=== PATIENT | male | born 1990 | race African-American/Black ===

== ENCOUNTER 2023-11-26 18:54 | Emergency (ER) | payer SELFPAY ==
[2023-11-26] MEDS ORDERED: ONDANSETRON 4 MG/2 ML VIAL ONE (19:23)
[2023-11-26] MEDS ORDERED: FAMOTIDINE 20 MG/2 ML VIAL IV ONE (19:24)
[2023-11-26] MEDS ORDERED: NA CHLORIDE 0.9% 1,000 ML ONE (19:24)
[2023-11-26] MEDS ORDERED: KETOROLAC 30 MG/ML INJ ONE (19:24)
[2023-11-26 19:51] LABS: Specific Gravity 1.017 (1.005-1.030); Sqamous Epithelial None Seen /HPF (None Seen); Urine Bacteria <20 /HPF (<20); Urine Bilirubin NEGATIVE (Negative); Urine Blood Negative (Negative); Urine Clarity Clear (Clear); Urine Color Light-Yellow (Yellow); Urine Culture Reflex Order NOT NEEDED; Urine Glucose NEGATIVE (Negative); Urine Ketones NEGATIVE (Negative); Urine Microscopic Reflex YN ORDER UMIC; Urine Mucus Slight /HPF (None Seen); Urine Nitrite NEGATIVE (Negative); Urine Protein NEGATIVE (Negative); Urine RBC <5 /HPF (None Seen); Urine Urobilinogen Normal (Normal); Urine WBC <5 /HPF (<5); Urine pH 5.5 (5.0-7.0)
[2023-11-26 20:11] LABS: Absolute Eosinophils 0.1 K/uL (0-0.5); Absolute Lymphocytes (CBC) 2.1 K/uL (0.7-4.9); Absolute Monocytes 0.6 K/uL (0.1-1.3); Absolute Neutrophil 2.7 K/uL (1.8-8.0); Basophils % 0.7 % (0-1.3); Eosinophils % 1.5 % (0-4.4); Hematocrit 34.2 % (39.6-49.0); Hemoglobin 11.2 g/dL (13.6-17.9); Lymphocytes % 37.7 % (15.3-44.8); MCH 27.7 pg (27.0-35.0); MCHC 32.7 g/dL (32.0-36.0); MCV 84.7 fL (80-100); MPV 8.5 fL (7.6-11.3); Monocytes % 10.5 % (3.3-12.3); Neutrophils % 49.6 % (41.7-73.7); Platelets 270 thou/uL (152-406); RBC Red Blood Cell Count 4.04 M/uL (4.33-5.43); Red Cell Distribution Width 15.1 % (12.1-15.2)
[2023-11-26 20:21] LABS: Albumin 3.3 g/dL (3.4-5.0); Albumin/Globulin Ratio 0.9 (1.1-1.8); Anion Gap 2.6 mEq/L (5.0-15.0); Bilirubin Total 0.2 mg/dL (0.2-1.0); Globulin 3.7 g/dL (2.3-3.5); Potassium 3.6 mEq/L (3.5-5.1)
[2023-11-27] MEDS ORDERED: DICYCLOMINE HCL 10 MG CAP ONE
--- NOTE | 2023-11-27 00:09 | EDPHYS ---
Physician Documentation [facility] Name: Azael Yost Age: 33 yrs Sex: Male : 1990 Arrival Date: 11/26/2023 Time: 18:54 Bed 6 Private MD: ED Physician Ted Bravo HPI: 11/25 19:30 This 33 yrs old Black Male presents to ER via Ambulatory with complaints of Abdominal cp Pain, Vomiting/Diarrhea. 19:30 The patient presents with abdominal pain. cp 19:30 Onset: The symptoms/episode began/occurred 11 day(s) ago. Associated signs and cp symptoms: Pertinent positives: diarrhea, nausea, vomiting. Severity of pain: in the emergency department the pain is unchanged despite home interventions. Historical: - Allergies: 19:07 No Known Allergies; as6 - Home Meds: 19:07 None [Active]; as6 - PMHx: 19:07 None; as6 - PSHx: 19:07 Appendectomy; hand; as6 - Immunization history:: Adult Immunizations up to date. - Infectious Disease History:: Denies. - Social history:: Smoking status: Patient reports the use of cigarette tobacco products, denies chronic smoking, but will smoke occasionally. ROS: 19:33 Constitutional: HX per HPI cp Exam: 19:35 Constitutional: The patient appears in no acute distress, alert, awake, comfortable, cp non-toxic, well developed, well nourished, 19:35 Head/Face: Normocephalic, atraumatic. cp 19:35 Eyes: Periorbital structures: appear normal, Conjunctiva: normal, no exudate, no injection, Sclera: no appreciated abnormality, Lids and lashes: appear normal, bilaterally, 19:35 ENT: External ear(s): are unremarkable, Nose: is normal, Mouth: Lips: moist, Oral mucosa: pink and intact, moist, Posterior pharynx: is normal, airway is patent, no erythema, no exudate, 19:35 Chest/axilla: Inspection: normal, 19:35 Cardiovascular: Rate: normal, 19:35 Respiratory: the patient does not display signs of respiratory distress, Respirations: normal, no use of accessory muscles, no retractions, labored breathing, is not present, Breath sounds: are clear throughout, no decreased breath sounds, no stridor, no wheezing, 19:35 Abdomen/GI: Inspection: abdomen appears normal, Bowel sounds: active, all quadrants, Palpation: soft, in all quadrants, mild abdominal tenderness, in the epigastric area, umbilical area, right upper quadrant and left upper quadrant, rebound tenderness, is not appreciated, involuntary guarding, is not appreciated, Vital Signs: 19:05 BP 115 / 75; Pulse 71; Resp 18 S; Temp 98.2(TE); Pulse Ox 95% on R/A; Weight 63.5 kg as6 (R); Height 5 ft. 10 in. (R); Pain 0/10; 20:00 BP 118 / 65; Pulse 63; Resp 16; Pulse Ox 100% on R/A; km8 20:30 BP 126 / 70; Pulse 54; Resp 16; Pulse Ox 100% on R/A; km8 21:00 BP 124 / 82; Pulse 54; Resp 16; Pulse Ox 100% on R/A; km8 21:30 BP 131 / 81; Pulse 54; Resp 16; Pulse Ox 100% on R/A; km8 22:00 BP 118 / 78; Pulse 58; Resp 16; Pulse Ox 100% on R/A; km8 23:00 BP 133 / 94; Pulse 50; Resp 16; Pulse Ox 100% on R/A; km8 11/26 00:00 BP 122 / 82; Pulse 67; Resp 16; Pulse Ox 100% on R/A; km8 11/25 19:05 Body Mass Index 20.09 (63.50 kg, 177.8 cm) as6 11/25 19:05 Pain Scale: Adult as6 MDM: 11/25 19:10 Patient medically screened. 11/26 00:07 Data reviewed: vital signs, nurses notes, lab test result(s), radiologic studies, CT cp scan. 00:07 I considered the following discharge prescriptions or medication management in the emergency department Medications were administered in the Emergency Department. See MAR. Counseling: I had a detailed discussion with the patient and/or guardian regarding the historical points, exam findings, and any diagnostic results supporting the discharge/admit diagnosis, lab results, radiology results, the need for outpatient follow up, for definitive care, a general surgeon. Special discussion: Based on the patient's Hx, exam, and Dx evaluation, there is no indication for emergent surgery or inpatient Tx. It is understood by the patient/guardian that if the Sx's persist or worsen they need to return immediately for re-evaluation. 11/25 19:17 Order name: CBC with Diff; Complete Time: 20:14 cp 11/25 20:14 Interpretation: Normal except: RBC 4.04; HGB 11.2; HCT 34.2. cp 11/25 19:17 Order name: CMP; Complete Time: 20:24 cp 11/25 20:24 Interpretation: Normal except: ANION GAP 2.6; GLUC 111; A/G 0.9; GLOB 3.7; ALB 3.3. cp 11/25 19:17 Order name: Lipase; Complete Time: 20:24 cp 11/25 19:17 Order name: Urinalysis w/ reflexes; Complete Time: 20:14 cp 11/25 20:15 Order name: CT Abd/Pelvis - PO and IV Contrast 11/25 19:17 Order name: IV Saline Lock; Complete Time: 19:58 cp 11/25 19:17 Order name: Labs collected and sent; Complete Time: 19:42 cp 11/25 19:51 Order name: Misc. Order: RECOLLECT - lav and green (Clotted and hemolyzed); Complete ty Time: 19:58 11/25 23:55 Order name: PO challenge; Complete Time: 00:18 cp Administered Medications: 11/25 20:01 Drug: NS 0.9% IV 1000 ml IV at 1 bolus Per protocol; 1000 mL bolus Route: IV; Rate: 1 km8 bolus; Site: left antecubital; 11/26 00:03 Follow up: IV Status: Completed infusion; IV Intake: 1000ml [facility] 11/25 20:01 Drug: Famotidine IVP 20 mg IVP once; dilute with 10 mL 0.9% NaCl; give over 2 minutes [facility] Route: IVP; Site: left antecubital; 11/26 00:03 Follow up: Response: No adverse reaction [facility] 11/25 20:01 Drug: TORadol - Ketorolac IVP 15 mg IVP once Route: IVP; Site: left antecubital; [facility] 11/26 00:03 Follow up: Response: No adverse reaction [facility] 11/25 20:01 Drug: Ondansetron IVP 4 mg IVP once; over 2 minutes Route: IVP; Site: left antecubital; 8 11/26 00:03 Follow up: Response: No adverse reaction 00:03 Drug: Dicyclomine PO 20 mg PO once Route: PO; 00:18 Follow up: Response: No adverse reaction Disposition Summary: 11/27/23 00:08 Discharge Ordered Notes: Location: Home cp Problem: new cp Symptoms: have improved cp Condition: Stable cp Diagnosis - Other cholelithiasis without obstruction cp - Diarrhea, unspecified cp Followup: cp - With: Angelito Gutierrez MD - When: 2 - 3 days - Reason: Recheck today's complaints Discharge Instructions: - Discharge Summary Sheet cp - Food Choices to Help Relieve Diarrhea, Adult cp - Diarrhea, Adult cp - Cholelithiasis cp Forms: - Medication Reconciliation Form cp - Antibiotic Education cp - Prescription Opioid Use cp - Patient Portal Instructions cp - Leadership Thank You Letter cp Prescriptions: - Zofran 4 mg Oral Tablet - take 1 tablet ORAL route every 12 hours As needed; 20 tablet; Refills: 0, cp Product Selection Permitted - dicyclomine 20 mg Oral tablet - take 1 tablet ORAL route 4 times per day; 30 tablet; Refills: 0, Product cp Selection Permitted Addendum: 11/28/2023 02:54 Co-signature as Attending Physician, Ted Bravo MD I agree with the assessment s p4 and plan of care. I reviewed the patient's care provided by the Advanced Practice Provider and agree with the diagnosis and treatment plan. Signatures: Dispatcher [employer] EDLA Ashwin Martin PA PA cp Jarrett Burns RN RN as6 Ted Bravo MD MD sp4 Meg Mazariegos RN RN km8 Elmer Garner ty Corrections: (The following items were deleted from the chart) 11/25 20:16 20:16 Abdomen Pelvis W [id number].BRZ ordered. EDLA EDMS
--- NOTE | 2023-11-27 00:09 | ER ---
Nurse's Notes [facility] Name: Azael Yost Age: 33 yrs Sex: Male : 1990 Arrival Date: 11/26/2023 Time: 18:54 Bed 6 Private MD: Diagnosis: Other cholelithiasis without obstruction;Diarrhea, unspecified Presentation: 11/25 19:05 Chief complaint: Patient states: abdominal pain and vomiting off and on x11 days. as6 Coronavirus screen: At this time, the client does not indicate any symptoms associated with coronavirus-19. Ebola Screen: No symptoms or risks identified at this time. Initial Sepsis Screen: Does the patient meet any 2 criteria? No. Patient's initial sepsis screen is negative. Does the patient have a suspected source of infection? No. Patient's initial sepsis screen is negative. Risk Assessment: Do you want to hurt yourself or someone else? Patient reports no desire to harm self or others. Onset of symptoms was November 15, 2023. 19:05 Method Of Arrival: Ambulatory as6 19:05 Acuity: ZACHARY 3 as6 Historical: - Allergies: 19:07 No Known Allergies; as6 - Home Meds: 19:07 None [Active]; as6 - PMHx: 19:07 None; as6 - PSHx: 19:07 Appendectomy; hand; as6 - Immunization history:: Adult Immunizations up to date. - Infectious Disease History:: Denies. - Social history:: Smoking status: Patient reports the use of cigarette tobacco products, denies chronic smoking, but will smoke occasionally. Screenin:[address] [facility] ED Fall Risk Assessment (Adult) History of falling in the last 3 months, tm6 including since admission No falls in past 3 months (0 pts) Confusion or Disorientation No (0 pts) Intoxicated or Sedated No (0 pts) Impaired Gait No (0 pts) Mobility Assist Device Used No (0 pt) Altered Elimination No (0 pt) Score/Fall Risk Level 0 - 2 = Low Risk Oriented to surroundings, Maintained a safe environment, Educated pt \T\ family on fall prevention, incl call for assistance when getting out of bed. Abuse screen: Denies threats or abuse. Denies injuries from another. Nutritional screening: No deficits noted. Tuberculosis screening: No symptoms or risk factors identified. Assessment: 19:42 General: Appears in no apparent distress. Behavior is calm, cooperative. Pain: tm6 Complains of pain in epigastric area Pain does not radiate. Pain currently is 5 out of 10 on a pain scale. at worst was 10 out of 10 on a pain scale. Quality of pain is described as pressure, Is intermittent. Neuro: Level of Consciousness is awake, alert, obeys commands, Oriented to person, place, time, situation. Neuro: No deficits noted. Cardiovascular: No deficits noted. Patient's skin is warm and dry. Respiratory: Airway is patent Respiratory effort is even, unlabored, Respiratory pattern is regular, symmetrical. GI: Abdomen is flat, non-distended, Bowel sounds present X 4 quads. Abd is soft and non tender X 4 quads. Reports diarrhea, epigastric pain, nausea, vomiting, since 12 days ago. : No signs and/or symptoms were reported regarding the genitourinary system. EENT: No signs and/or symptoms were reported regarding the EENT system. Derm: No signs and/or symptoms reported regarding the dermatologic system. Musculoskeletal: No signs and/or symptoms reported regarding the musculoskeletal system. 20:45 Reassessment: Patient appears in no apparent distress at this time. No changes from km8 previously documented assessment. Patient and/or family updated on plan of care and expected duration. Pain level reassessed. Patient is alert, oriented x 3, equal unlabored respirations, skin warm/dry/pink. 21:10 Reassessment: pt finished oral contrast at 2054; CT notified. km8 22:12 Reassessment: Patient appears in no apparent distress at this time. No changes from km8 previously documented assessment. Patient and/or family updated on plan of care and expected duration. Pain level reassessed. Patient is alert, oriented x 3, equal unlabored respirations, skin warm/dry/pink. 23:17 Reassessment: Patient appears in no apparent distress at this time. No changes from km8 previously documented assessment. Patient and/or family updated on plan of care and expected duration. Pain level reassessed. Patient is alert, oriented x 3, equal unlabored respirations, skin warm/dry/pink. Vital Signs: 19:05 BP 115 / 75; Pulse 71; Resp 18 S; Temp 98.2(TE); Pulse Ox 95% on R/A; Weight 63.5 kg as6 (R); Height 5 ft. 10 in. (R); Pain 0/10; 20:00 BP 118 / 65; Pulse 63; Resp 16; Pulse Ox 100% on R/A; km8 20:30 BP 126 / 70; Pulse 54; Resp 16; Pulse Ox 100% on R/A; km8 21:00 BP 124 / 82; Pulse 54; Resp 16; Pulse Ox 100% on R/A; km8 21:30 BP 131 / 81; Pulse 54; Resp 16; Pulse Ox 100% on R/A; km8 22:00 BP 118 / 78; Pulse 58; Resp 16; Pulse Ox 100% on R/A; km8 23:00 BP 133 / 94; Pulse 50; Resp 16; Pulse Ox 100% on R/A; km8 11/26 00:00 BP 122 / 82; Pulse 67; Resp 16; Pulse Ox 100% on R/A; km8 11/25 19:05 Body Mass Index 20.09 (63.50 kg, 177.8 cm) as6 11/25 19:05 Pain Scale: Adult as6 ED Course: 11/25 19:01 Patient arrived in ED. mg5 19:03 Ashwin Martin PA is PHCP. cp 19:03 Ashwin Fitzpatrick MD is Attending Physician. cp 19:07 Triage completed. as6 19:07 Arm band placed on right wrist. as6 19:20 Nadiya Cummings, RN is Primary Nurse. tm6 19:41 CBC with Diff Sent. tm6 19:41 CMP Sent. tm6 19:42 Patient has correct armband on for positive identification. Bed in low position. Call tm6 light in reach. Side rails up X 1. Provided Education on: plan of care. Client placed on continuous cardiac and pulse oximetry monitoring. NIBP monitoring applied. Pulse ox on. NIBP on. Door closed. Noise minimized. Pillow given. 19:42 Lipase Sent. tm6 19:42 Urinalysis w/ reflexes Sent. tm6 19:42 Missed attempt(s): 20 gauge in right antecubital area. Bleeding controlled, band aid tm6 applied, catheter tip intact. 19:44 Missed attempt(s): 20 gauge in right wrist. Bleeding controlled, band aid applied, tm6 catheter tip intact. 20:00 Initial lab(s) drawn, by ED staff, sent to lab. Inserted saline lock: 20 gauge in left [facility] antecubital area, using aseptic technique. Blood collected. : CBC with Diff Sent. : CMP Sent. : Lipase Sent. 20:08 Ted Bravo MD is Attending Physician. cp 22:37 CT Abd/Pelvis - PO and IV Contrast In Process Unspecified. EDMS 23:17 Awaiting radiology results. 11/26 00:06 Angelito Gutierrez MD is Referral Physician. cp 00:18 IV discontinued, intact, bleeding controlled, No redness/swelling at site. Pressure dressing applied. 00:19 No provider procedures requiring assistance completed. Administered Medications: 11/25 20: Drug: NS 0.9% IV 1000 ml IV at 1 bolus Per protocol; 1000 mL bolus Route: IV; Rate: 1 km8 bolus; Site: left antecubital; 11/26 00:03 Follow up: IV Status: Completed infusion; IV Intake: 1000ml 11/25 20:01 Drug: Famotidine IVP 20 mg IVP once; dilute with 10 mL 0.9% NaCl; give over 2 minutes Route: IVP; Site: left antecubital; 11/26 00:03 Follow up: Response: No adverse reaction [facility] 11/25 20:01 Drug: TORadol - Ketorolac IVP 15 mg IVP once Route: IVP; Site: left antecubital; 11/26 00:03 Follow up: Response: No adverse reaction [facility] 11/25 20:01 Drug: Ondansetron IVP 4 mg IVP once; over 2 minutes Route: IVP; Site: left antecubital; 11/26 00:03 Follow up: Response: No adverse reaction 00:03 Drug: Dicyclomine PO 20 mg PO once Route: PO; 00:18 Follow up: Response: No adverse reaction Medication: 11/25 19:42 VIS not applicable for this client. tm6 Intake: 11/26 00:03 IV: 1000ml; Total: 1000ml. Outcome: 00:08 Discharge ordered by . cp 00:19 Discharged to home ambulatory, with significant other, 00:19 Condition: good 00:19 Discharge instructions given to patient, significant other, Instructed on discharge instructions, follow up and referral plans. medication usage, Demonstrated understanding of instructions, follow-up care, medications, Prescriptions given X 2, 00:19 Patient left the ED. km8 Signatures: Dispatcher [employer] EDMS Ashwin Martin PA PA cp Slawson, Ashby, RN RN as6 Kinza Arriaga 5 Meg Mazariegos RN RN km8 Nadiya Cummings RN RN tm6
[2023-11-27 00:39] VITALS: BP 122/82; TEMP 98.2; O2SAT 100
--- NOTE | 2023-11-28 15:14 | RAD REPORT ---
EXAM DESCRIPTION: CT - Abdomen Pelvis W Contrast - 11/27/2023 6:11 am CLINICAL HISTORY: The patient is 33 years old and is Male; diarrhea;Abd pain TECHNIQUE: Axial computed tomography images of the abdomen and pelvis with intravenous contrast. S agittal and coronal reformatted images were created and reviewed. This CT exam was performed using one or more of the following dose reduction techniques: automated exposure control, adjustment of t he mA and/or kV according to patient size, and/or use of iterative reconstruction technique. COMPARISON: No relevant prior studies available. FINDINGS: LUNG BASES: Unremarkable. No mass. No consolidation. ABDOMEN: LIVER: Unremarkable. No mass. GALLBLADDER AND BILE DUCTS: Calcified gallstones are present within the gallbladder. The gallblad [place] is slightly contracted. There is no ductal dilatation. PANCREAS: No ductal dilation. No mass. SPLEEN: Unremarkable. ADRENALS: Unremarkable. No mass. KIDNEYS AND URETERS: Unremarkable. The kidneys enhance symmetrically. No obstructing renal or ure teral calculus is seen. No hydronephrosis or hydroureter. No perinephric fluid or stranding. STOMACH AND BOWEL: The stomach is distended with food contents and high-density material suggesti ng oral contrast. The small bowel is relatively normal in caliber. The distal small bowel is filled w ith oral contrast. Oral contrast and stool are noted throughout the majority of the colon. There is n o mucosal thickening or evidence of obstruction. PELVIS: APPENDIX: The appendix is surgically absent. BLADDER: The bladder is well distended. REPRODUCTIVE: Unremarkable as visualized. ABDOMEN and PELVIS: INTRAPERITONEAL SPACE: Unremarkable. No free air. No significant fluid collection. BONES/JOINTS: No acute fracture. SOFT TISSUES: The soft tissues are normal. VASCULATURE: Unremarkable. No abdominal aortic aneurysm. LYMPH NODES: Unremarkable. No enlarged lymph nodes. IMPRESSION: 1. Moderate stool burden without obstruction. 2. Cholelithiasis without CT evidence to suggest cholecystitis. Electronically signed by: Chloe Medellin MD 11/26/2023 11:27 PM CDT RP Due to temporary technical issues with the PACS/Fluency reporting system, reports are being signed by the in house radiologists without review as a courtesy to insure prompt reporting. The interpreting radiologist is fully responsible for the content of the report.
== END 2023-11-27 00:19 | disposition home or self-care (01) ==
LOC: ER 18:54
DX: K80.80 Other cholelithiasis without obstruction (principal); R19.7 Diarrhea, unspecified
CPT/HCPCS: 36415; 74177; 80053; 81001; 83690; 85025; 96361; 96374; 96375; 99284; J2405; J7030; Q9967